=== PATIENT | male | born 1980 | race Caucasian/White ===

== ENCOUNTER 2020-11-29 10:22 | Inpatient (IN) | payer SELFPAY ==
[~2020-11-29] VITALS: Ht 177.8 cm; Wt 82.0 kg
--- NOTE | 2020-11-29 10:32 | NUR ---
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
[2020-11-29] MEDS ORDERED: LORazepam 2 MG/ML, 1ML ONE ×3 (10:44→14:39)
[2020-11-29] MEDS: LORazepam 2 MG/ML, 1ML IVPush PRN ×2 (10:46→10:56)
--- NOTE | 2020-11-29 10:48 | NUR ---
Pt diaphoretic, HR 96, tremulous, no oral trauma no incontinence. IV started bloods drawn and sent, Seizure pads placed on [place] for safety. Dr Ashby at bedside. No head/neck pain. Medicated per order. On monitor, o2 sats, b/p. No oral trauma, no inct.
[2020-11-29] MEDS ORDERED: SODIUM CHLORIDE FLUSH 10ML SYR IVF ONE (11:00)
[2020-11-29] MEDS ORDERED: SODIUM CHLORIDE 0.9% 1,000ML IVBOLUS ONE (11:00)
[2020-11-29] MEDS ORDERED: MAGNESIUM SULFATE 1 GM, THIAMINE 100 MG, FOLIC ACID 1 MG, MVI ADULT 10 ML in SODIUM CHL... IV ONE (11:00)
[2020-11-29 11:15] LABS: BASOPHILS % (AUTO) 0 % (0-1); EOSINOPHILS % (AUTO) 0 % (1-7); LYMPHOCYTES % (AUTO) 6 % (22-44); MEAN CORPUSCULAR HEMOGLOBIN 36.6 pg (27.5-34.5); MEAN CORPUSCULAR HGB CONC 35.1 g/dL (33.2-36.2); MEAN PLATELET VOLUME 8.3 fL (7.4-10.4); MONOCYTES % (AUTO) 17 % (2-9); NEUTROPHILS % (AUTO) 76 % (42-75); RED CELL DISTRIBUTION WIDTH 12.9 % (9.4-14.8)
--- NOTE | 2020-11-29 11:16 | NUR ---
IVF infusing, pt now sleeping, RR equal and unlabored. Will continue to monitor.
[2020-11-29 11:26] LABS: ALBUMIN 3.8 g/dL (3.4-5.0); ANION GAP 11 mmol/L (5-15); CALCIUM 9.1 mg/dL (8.5-10.1); CHLORIDE 97 mmol/L (98-107)
[2020-11-29 11:29] LABS: ALANINE AMINOTRANSFERASE 144 U/L (12-78); ALKALINE PHOSPHATASE 98 U/L (45-117); BILIRUBIN,TOTAL 1.7 mg/dL (0.2-1.0); CREATININE 0.65 mg/dL (0.7-1.3); TOTAL PROTEIN 7.9 g/dL (6.4-8.2)
--- NOTE | 2020-11-29 11:33 | NUR ---
Sleeping, RR equal and unlabored. No seizure activity noted.
[2020-11-29] MEDS ORDERED: POTASSIUM CHLORIDE 40 MEQ in SODIUM CHLORIDE 0.9% 500 ML IV ONE (12:00)
[2020-11-29 12:05] LABS: PLATELET COUNT 32 x10^3/uL (130-400)
--- NOTE | 2020-11-29 12:11 | NUR ---
No seizure activity, VSS, IVF infusing. Waiting for tele admit.
--- NOTE | 2020-11-29 12:18 | NUR ---
Hospitalist at bedside, waiting for admission.
[2020-11-29] MEDS ORDERED: LORazepam 0.5MG TABLET PO PRN (12:30)
[2020-11-29] MEDS ORDERED: NS + 20MEQ KCL 1,000 ML IV SCH (12:30)
[2020-11-29] MEDS ORDERED: ONDANSETRON ODT 4 MG PO PRN (12:30)
[2020-11-29] MEDS ORDERED: MAGNESIUM SULFATE 1 GM, THIAMINE 200 MG, FOLIC ACID 1 MG, MVI ADULT 10 ML in SODIUM CHL... IV SCH (12:30)
[2020-11-29] MEDS ORDERED: ONDANSETRON 2MG/ML, 2ML IVPush PRN (12:30)
[2020-11-29] MEDS ORDERED: LORazepam 2 MG/ML, 1ML IV PRN ×2 (12:30)
[2020-11-29] MEDS ORDERED: POTASSIUM CHLORIDE 20 MEQ TAB.ER.PRT PO ONE (12:30)
[2020-11-29] MEDS ORDERED: BISACODYL 10 MG SUPP PR PRN (12:30)
[2020-11-29] MEDS ORDERED: POLYETHYLENE GLYCOL 17 GM PACKET PO PRN (12:30)
[2020-11-29] MEDS ORDERED: ACETAMINOPHEN 325 MG TABLET PO PRN (12:30)
[2020-11-29] MEDS ORDERED: DOCUSATE 100 MG CAPSULE PO PRN (12:30)
[2020-11-29] MEDS ORDERED: LABETALOL 5MG/ML, 20ML IVPush PRN (12:30)
[2020-11-29] MEDS ORDERED: ENALAPRILAT 1.25 MG/ML, 2ML IVPush PRN (12:30)
[2020-11-29] MEDS ORDERED: LORazepam 1MG TABLET PO PRN ×3 (12:30)
[2020-11-29] MEDS: DIAZEPAM 10 MG TABLET PO SCH ×2 (12:30→15:07)
--- NOTE | 2020-11-29 13:25 | NUR ---
Break RN note: Pt back from CT, resting in bed, NADN, denies needs.
[2020-11-29] MEDS ORDERED: DIAZEPAM 5 MG TABLET ONE (14:32)
[2020-11-29] MEDS ORDERED: POTASSIUM CHLORIDE 20 MEQ TAB.ER.PRT ONE (14:39)
[2020-11-29] MEDS: LORazepam 2 MG/ML, 1ML IV PRN ×2 (15:08→22:43)
--- NOTE | 2020-11-29 15:08 | NUR ---
Pt increasing, tremors, sweating forehead, slight confusion. Medicated with 2mg Ativan IV for CIWA greater 11. RR equal and unlabored. Pt with episode of inc loose stools, changed and cleaned up back to bed. Waiting for tele bed. Remains NSR no ectopy, call basilio in reach
--- NOTE | 2020-11-29 15:42 | NUR ---
Pt now sleeping, RR equal and unlabored. IV potassium infusing, dr diop cancelled the ralley bag. VSS. no seizure activity noted.
--- NOTE | 2020-11-29 16:12 | NUR ---
Hospitalist ordered ralley bag, tubed request for bag.
--- NOTE | 2020-11-29 16:59 | NUR ---
Report to HEATHER Shin on tele. Pt ready for transport, belongings with pt.
[2020-11-29 17:30] VITALS: BP 124/69
[2020-11-29] MEDS ORDERED: NICOTINE 21 MG/24 HR PATCH.TD24 TD SCH (19:30)
[2020-11-29 20:23] VITALS: BP 122/77
[2020-11-30] MEDS: DIAZEPAM 10 MG TABLET PO SCH ×2 (00:58→06:46)
[2020-11-30] MEDS: LORazepam 2 MG/ML, 1ML IV PRN (01:56)
[2020-11-30] MEDS ORDERED: LORazepam 2 MG/ML, 1ML IVPush ONE (02:00)
[2020-11-30 02:17] VITALS: BP 113/72
[2020-11-30 04:47] LABS: BASOPHILS % (AUTO) 0 % (0-1); EOSINOPHILS % (AUTO) 1 % (1-7); LYMPHOCYTES % (AUTO) 18 % (22-44); MEAN CORPUSCULAR HEMOGLOBIN 36.5 pg (27.5-34.5); MEAN CORPUSCULAR HGB CONC 34.5 g/dL (33.2-36.2); MEAN PLATELET VOLUME 7.8 fL (7.4-10.4); MONOCYTES % (AUTO) 12 % (2-9); NEUTROPHILS % (AUTO) 68 % (42-75); RED BLOOD COUNT 3.95 x10^6/uL (4.38-5.82); RED CELL DISTRIBUTION WIDTH 12.6 % (9.4-14.8)
[2020-11-30 05:03] LABS: CHLORIDE 105 mmol/L (98-107)
[2020-11-30 05:16] LABS: ALANINE AMINOTRANSFERASE 140 U/L (12-78); ALBUMIN 2.9 g/dL (3.4-5.0); ALKALINE PHOSPHATASE 79 U/L (45-117); ANION GAP 8 mmol/L (5-15); BILIRUBIN,TOTAL 1.3 mg/dL (0.2-1.0); CALCIUM 8.5 mg/dL (8.5-10.1); CREATININE 0.49 mg/dL (0.7-1.3); TOTAL PROTEIN 6.6 g/dL (6.4-8.2)
[2020-11-30 05:55] LABS: PLATELET COUNT 17 x10^3/uL (130-400)
[2020-11-30] MEDS ORDERED: LORazepam 1MG TABLET PO PRN ×4 (06:00)
[2020-11-30] MEDS ORDERED: LORazepam 0.5MG TABLET PO PRN (06:00)
[2020-11-30] MEDS ORDERED: LORazepam 2 MG/ML, 1ML IV PRN ×5 (06:00)
[2020-11-30] MEDS ORDERED: DIAZEPAM 10 MG TABLET PO ONE (07:00)
[2020-11-30] MEDS ORDERED: DIAZEPAM 5 MG TABLET PO SCH (12:30)
== END 2020-11-30 06:48 | disposition left against medical advice (07) | DRG 101 ==
LOC: ED 12:12 → EDIP 12:18 → ED 14:01 → 4EST 17:19
PROVIDERS: ADMIT Family Medicine; ATTEND Family Medicine
DX: R56.9 Unspecified convulsions (principal); F10.239 Alcohol dependence with withdrawal, unspecified; I10 Essential (primary) hypertension; E87.6 Hypokalemia; D69.6 Thrombocytopenia, unspecified; F17.210 Nicotine dependence, cigarettes, uncomplicated; Z53.29 Procedure and treatment not carried out because of patient's decision for other reasons; Z79.899 Other long term (current) drug therapy
CPT/HCPCS: 36415; 70450; 80053; 80320; 83690; 83735; 84100; 85025; 93005; 99285; G0378; J3411; J3475; J3480; G0480; J2060; J7030; J7040